=== PATIENT | male | born 1955 | race Caucasian/White ===

== ENCOUNTER → 2018-02-15 06:49 | Outpatient (CLI) | payer OTHER, SELFPAY ==
[2018-02-15 08:52] LABS: Cholesterol 181 mg/dL (140-199); HDL Cholesterol 54 mg/dL (40-60); LDL Cholesterol Calculated 111 mg/dL (<100); Triglycerides 80 mg/dL (35-150)
== END ==
PROVIDERS: Visit Provider Internal Medicine
DX: E78.00 Pure hypercholesterolemia, unspecified (principal); Z00.00 Encounter for general adult medical examination without abnormal findings
CPT/HCPCS: 36415; 80061

== ENCOUNTER → 2018-11-23 11:51 | Outpatient (CLI) | payer OTHER, SELFPAY ==
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
== END ==
PROVIDERS: PCP Family Medicine; Visit Provider Hospitalist
DX: S13.4XXA Sprain of ligaments of cervical spine, initial encounter (principal); M47.812 Spondylosis without myelopathy or radiculopathy, cervical region
CPT/HCPCS: 72040

== ENCOUNTER → 2019-07-18 08:54 | Outpatient (CLI) | payer OTHER, MEDICAID, SELFPAY ==
[2019-07-18 09:50] LABS: Cholesterol 187 mg/dL (140-199); Glucose 93 mg/dL (80-110); HDL Cholesterol 56 mg/dL (40-60); LDL Cholesterol Calculated 116 mg/dL (<100); Triglycerides 75 mg/dL (35-150)
== END ==
PROVIDERS: PCP Family Medicine; Referring Provider Family Medicine; Visit Provider Family Medicine
DX: Z13.220 Encounter for screening for lipoid disorders (principal); Z13.1 Encounter for screening for diabetes mellitus; E78.00 Pure hypercholesterolemia, unspecified
CPT/HCPCS: 36415; 80061; 82947

== ENCOUNTER → 2020-04-09 07:16 | Outpatient (CLI) | payer OTHER, SELFPAY ==
[2020-04-09 09:16] LABS: Cholesterol 192 mg/dL (140-199); HDL Cholesterol 57 mg/dL (40-60); LDL Cholesterol Calculated 118 mg/dL (<100); Triglycerides 87 mg/dL (35-150)
== END ==
PROVIDERS: PCP Family Medicine; Referring Provider Family Medicine; Visit Provider Family Medicine
DX: E78.00 Pure hypercholesterolemia, unspecified (principal)
CPT/HCPCS: 36415; 80061